=== PATIENT | male | born 1970 | race Caucasian/White ===

== ENCOUNTER 2016-12-02 12:42 | Inpatient (IN) | payer OTHER ==
[2016-12-02 16:24] VITALS: BMI 23.3
--- NOTE | 2016-12-02 17:21 | HP ---
CIWA Score - CIWA Score Nausea/Vomitin-Mild Nausea/No Vomiting Muscle Tremors: 3 Anxiety: 4-Mod. Anxious/Guarded Agitation: 2 Paroxysmal Sweats: 3 Orientation: 0-Oriented Tacttile Disturbances: 1-Very Mild Itch/Numbness Auditory Disturbances: 0-None Visual Disturbances: 0-None Headache: 0-None Present CIWA-Ar Total Score: 14 Admission ROS BHS - HPI Chief Complaint: Alcohol withdrawal symptoms Allergies/Adverse Reactions: Allergies Allergy/AdvReac Type Severity Reaction Status Date / Time No Known Allergies Allergy Verified 12/02/16 17:08 History of Present Illness: 46 years old AA male with a hx of alcohol dependence is admitted for detox. Patient has been in previous detox and graduated from [facility] program in 2012. Patient reports 4 years of sobriety until he lost custody of his 7 years old son. Patient states " I have opioid withdrawal symptoms and cravings at this time". Exam Limitations: Physical Impairment (ambulates with unsteady gait due to left foot cellulitis) - Ebola screening Have you traveled outside of the country in the last 21 days: No Have you had contact with anyone from an Ebola affected area: No Have you been sick,other than usual withdrawal symptoms: No Do you have a fever: No - Review of Systems Constitutional: Loss of Appetite, Malaise, Changes in sleep, Weakness, Unexplained wgt Loss EENT: reports: Blurred Vision (Lost prescription glasses), Other (Has no teeth and reports loss of dentures) Respiratory: reports: SOB with Exertion, Productive cough Cardiac: reports: Chest Tightness (long hx of smoking) GI: reports: Nausea, Poor Appetite, Poor Fluid Intake : reports: No Symptoms Reported Musculoskeletal: reports: Back Pain, Joint Pain, Muscle Pain, Muscle Weakness, Joint Stiffness Integumentary: reports: Flushing Neuro: reports: Tingling, Tremors Endocrine: reports: Flushing, Unexplained Weight Loss (poor appetite and nutrition) Hematology: reports: No Symptoms Reported Psychiatric: reports: Orientated x3, Anxious Other Systems: Reviewed and Negative Patient History - Patient Medical History Hx Anemia: No Hx Asthma: No Hx Chronic Obstructive Pulmonary Disease (COPD): No Hx Cancer: No Hx Cardiac Disorders: No Hx Congestive Heart Failure: No Hx Hypertension: No Hx Hypercholesterolemia: No HX Cerebrovascular Accident: No Hx Seizures: No (denies) Hx Diabetes: No Hx Gastrointestinal Disorders: No Hx Liver Disease: No Hx Genitourinary Disorders: No Hx Sexually Transmitted Disorders: No Hx Renal Disease (ESRD): No Hx Thyroid Disease: No Hx Human Immunodeficiency Virus (HIV): No (Negative May 2016) Hx Hepatitis C: No Hx Depression: No Hx Suicide Attempt: No (Reports no suicidal ideation at this time) Hx Bipolar Disorder: No Hx Schizophrenia: No - Patient Surgical History Past Surgical History: Yes Hx Neurologic Surgery: No Hx Cataract Extraction: No Hx Cardiac Surgery: No Hx Lung Surgery: No Hx Breast Surgery: No Hx Breast Biopsy: No Hx Abdominal Surgery: No Hx Appendectomy: No Hx Cholecystectomy: No Hx Genitourinary Surgery: No Hx Section: No Hx Orthopedic Surgery: Yes (Left thigh 1981) Hx Hysterectomy: No Anesthesia Reaction: No - PPD History Previous Implant?: Yes ([employer]) Documented Results: Negative w/o proof PPD to be Administered?: Yes - Reproductive History Patient is a Female of Child Bearing Age (11 -55 yrs old): No (MALE) - Smoking Cessation Smoking history: Current every day smoker Have you smoked in the past 12 months: Yes Aproximately how many cigarettes per day: 5 Hx Chewing Tobacco Use: No Initiated information on smoking cessation: Yes 'Breaking Loose' booklet given: 12/02/16 - Substance & Tx. History Hx Alcohol Use: Yes (Vodka) Hx Substance Use: Yes (Cocaine, Heroin, Marijuana, Klonopin) Substance Use Type: Alcohol Hx Substance Use Treatment: Yes ([facility]) - Substances Abused Benzodiazepine (Klonopin) Route: Oral Frequency: Daily Amount used: 4 Age of first use: 45 Date of Last Use: 11/30/16 Cocaine Route: Smoking Frequency: Daily Amount used: $200-$300 daily Age of first use: 30 Date of Last Use: 12/01/16 Marijuana/Hashish Route: Smoking Frequency: Daily Amount used: $40 daily Age of first use: 11 Date of Last Use: 12/01/16 Family Disease History - Family Disease History Family Disease History: CA: Mother (Breast/Pancreatic Ca, ) Admission Physical Exam BHS - Vital Signs Vital Signs: Vital Signs - 24 hr 12/02/16 16:23 Temperature 98.1 F Pulse Rate 55 L Respiratory 16 Rate Blood Pressure 129/72 - Physical General Appearance: Yes: Moderate Distress, Thin, Irritable, Sweating, Anxious HEENTM: Yes: EOMI, Normal Voice, Other (No teeth) Respiratory: Yes: Lungs Clear, Normal Breath Sounds, No Respiratory Distress Neck: Yes: Supple Breast: Yes: Breast Exam Deferred Cardiology: Yes: Regular Rhythm, Regular Rate, S1, S2 Abdominal: Yes: Normal Bowel Sounds, Soft Genitourinary: Yes: Within Normal Limits Back: Yes: Normal Inspection Musculoskeletal: Yes: Joint Stiffness, Muscle Pain, Muscle weakness, Other ( ambulates with unsteady gait) Extremities: Yes: Tremors Neurological: Yes: Fully Oriented, Alert, Normal Response Integumentary: Yes: Dry, Pitting Edema (Left lower extremities), Other (Left foot swelling, redness and cellulitis to left 4th toe) Lymphatic: Yes: Within Normal Limits - Diagnostic (1) Alcohol dependence with uncomplicated withdrawal Current Visit: Yes Status: Acute (2) Opioid dependence with withdrawal Current Visit: Yes Status: Acute (3) Cannabis dependence, uncomplicated Current Visit: Yes Status: Acute (4) Sedative, hypnotic or anxiolytic dependence with withdrawal, uncomplicated Current Visit: Yes Status: Acute (5) Cellulitis and abscess of foot Current Visit: Yes Status: Acute Cleared for Admission [facility] - Detox or Rehab [facility] Level of Care: Medically Managed Detox Regimen/Protocol: Librium [facility] Breath Alcohol Content Breath Alcohol Content: 0 Urine Drug Screen - Results Drug Screen Negative: No Urine Drug Screen Results: THC-Marijuana, SUMEET-Cocaine
[2016-12-02] MEDS ORDERED: NICOTINE POLACRILEX 2 MG GUM BC PRN (17:54)
[2016-12-02] MEDS ORDERED: LOPERAMIDE HCL 2 MG CAPSULE PO PRN (17:54)
[2016-12-02] MEDS ORDERED: ACETAMINOPHEN 325 MG TABLET (FP) PO PRN (17:54)
[2016-12-02] MEDS ORDERED: IBUPROFEN 400 MG TABLET (FP) PO PRN (17:54)
[2016-12-02] MEDS ORDERED: P-EPHED 60MG/TRIPROLIDI 2.5MG TABLET PO PRN (17:54)
[2016-12-02] MEDS ORDERED: diphenhydrAMINE HCL 50 MG CAPSULE PO PRN (17:54)
[2016-12-02] MEDS ORDERED: MAGNESIUM CITRATE 300 ML BOTTLE PO PRN (17:54)
[2016-12-02] MEDS ORDERED: hydrOXYzine PAMOATE 50 MG CAPSULE (FP) PO PRN (17:54)
[2016-12-02] MEDS ORDERED: guaiFENesin/D-METHORPHAN HB 10 ML UNIT-DOSE CUPS PO PRN (17:54)
[2016-12-02] MEDS ORDERED: MAGNESIUM HYDROX 2400MG/30ML ORAL SUSPENSION 30 ML CUP PO PRN (17:54)
[2016-12-02] MEDS ORDERED: chlordiazePOXIDE HCL 25 MG CAPSULE PO PRN (17:54)
[2016-12-02] MEDS ORDERED: MAG HYDROX/AL HYDROX/SIMETH 30 ML UNIT-DOSE CUP PO PRN (17:54)
[2016-12-02] MEDS ORDERED: MENTHOL/PHENOL 1 EACH UD MM PRN (17:54)
[2016-12-02] MEDS: THIAMINE HCL 100 MG TABLET (FP) PO SCH (22:16)
[2016-12-02] MEDS: chlordiazePOXIDE HCL 25 MG CAPSULE PO SCH (22:16)
[2016-12-02 22:54] LABS: URINE APPEARANCE CLEAR; URINE BILIRUBIN NEGATIVE (NEGATIVE); URINE BLOOD NEGATIVE (NEGATIVE); URINE COLOR YELLOW; URINE GLUCOSE (UA) NEGATIVE (NEGATIVE); URINE KETONE NEGATIVE (NEGATIVE); URINE NITRITE NEGATIVE (NEGATIVE); URINE PROTEIN NEGATIVE (NEGATIVE); URINE UROBILINOGEN NEGATIVE mg/dL (0.2-1.0)
[2016-12-03] MEDS: chlordiazePOXIDE HCL 25 MG CAPSULE PO SCH ×4 (05:27→22:14)
[2016-12-03] MEDS: AMOX TR/POT CLAV 875MG/125MG TABLETS (FP) PO SCH ×2 (07:53→17:34)
[2016-12-03 09:06] LABS: URINE LEUK ESTERASE Negative (NEGATIVE)
[2016-12-03 10:03] LABS: MCH 31.8 pg (25.7-33.7); MEAN CELL VOLUME 93.7 fl (80-96); MEAN PLT VOLUME 8.3 fl (7.5-11.1); PLATELET COUNT 204 K/MM3 (134-434); RDW 12.7 % (11.9-15.9); WHITE BLOOD COUNT 6.9 K/mm3 (4.0-10.0)
[2016-12-03 10:31] LABS: ALBUMIN 2.8 g/dl (3.4-5.0); ALK PHOS 64 U/L (45-117); ANION GAP 8 (8-16); BILIRUBIN,TOTAL 0.5 mg/dL (0.2-1.0); CALCIUM 7.8 mg/dL (8.5-10.1); CO2 26 mmol/L (21-32); CREATININE 1.1 mg/dL (0.7-1.3); GLUCOSE,RANDOM 98 mg/dL (74-106); SGOT/AST 11 U/L (15-37); SGPT/ALT 21 U/L (12-78); TOT PROT 5.7 g/dl (6.4-8.2)
[2016-12-03] MEDS: PRENATAL VITAMINS W/ FOLIC ACID TABLET (FP) PO SCH (10:31)
[2016-12-03] MEDS: NICOTINE 14 MG/24 HOURS TOPICAL PATCH TD SCH (10:31)
--- NOTE | 2016-12-03 13:25 | EKG ---
Test Reason : Blood Pressure : / mmHG Vent. Rate : 060 BPM Atrial Rate : 060 BPM P-R Int : 142 ms QRS Dur : 078 ms QT Int : 422 ms P-R-T Axes : 079 077 071 degrees QTc Int : 422 ms NORMAL SINUS RHYTHM NORMAL ECG NO PREVIOUS ECGS AVAILABLE Confirmed by HUGO BANDA, ANKITA ([id number]) on 12/03/2016 1:24:58 PM Referred By: Confirmed By:ANKITA ARIAS MD
--- NOTE | 2016-12-03 13:45 | PN ---
[facility] CIWA - CIWA Score Nausea/Vomitin-No Nausea/No Vomiting Muscle Tremors: 3 Anxiety: 4-Mod. Anxious/Guarded Agitation: 2 Paroxysmal Sweats: 3 Orientation: 2-Disoriented Date<2 days Tacttile Disturbances: 3-Moderate Itch/Numb/Burn Auditory Disturbances: 0-None Visual Disturbances: 0-None Headache: 4-Moderately Severe CIWA-Ar Total Score: 21 BHS Progress Note (SOAP) Subjective: Body aches, Sweating, H/A, Tremors. Objective: PT. A & O X 2 (DISORIENTED ABOUT DAY / DATE). NO ACUTE DISTRESS. 12/03/16 13:41 Vital Signs Temperature 97.6 F 12/03/16 13:30 Pulse Rate 69 12/03/16 13:30 Respiratory Rate 18 12/03/16 13:30 Blood Pressure 121/71 12/03/16 13:30 O2 Sat by Pulse Oximetry (%) Laboratory Tests 12/02/16 12/03/16 12/03/16 22:45 07:00 07:00 WBC 6.9 RBC 4.10 Hgb 13.1 Hct 38.5 MCV 93.7 MCH 31.8 MCHC 34.0 RDW 12.7 Plt Count 204 MPV 8.3 Sodium 142 Potassium 3.8 Chloride 108 H Carbon Dioxide 26 Anion Gap 8 BUN 16 Creatinine 1.1 Creat Clearance w eGFR > 60 Random Glucose 98 Calcium 7.8 L Total Bilirubin 0.5 AST 11 L ALT 21 Alkaline Phosphatase 64 Total Protein 5.7 L Albumin 2.8 L Urine Color Yellow Urine Appearance Clear Urine pH 5.0 Ur Specific [place] 1.020 Urine Protein Negative Urine Glucose (UA) Negative Urine Ketones Negative Urine Blood Negative Urine Nitrite Negative Urine Bilirubin Negative Urine Urobilinogen Negative Ur Leukocyte Esterase Negative RPR Titer 12/03/16 07:00 WBC RBC Hgb Hct MCV MCH MCHC RDW Plt Count MPV Sodium Potassium Chloride Carbon Dioxide Anion Gap BUN Creatinine Creat Clearance w eGFR Random Glucose Calcium Total Bilirubin AST ALT Alkaline Phosphatase Total Protein Albumin Urine Color Urine Appearance Urine pH Ur Specific [place] Urine Protein Urine Glucose (UA) Urine Ketones Urine Blood Urine Nitrite Urine Bilirubin Urine Urobilinogen Ur Leukocyte Esterase RPR Titer Nonreactive LABS NOTED. SWELLING NOTED IN LOWER ASPECT OF LEFT LEG. PATIENT REPORTS THAT HE COMPLETED 15 -DAY COURSE OF ANTIBIOTIC (HE WAS UNABLE TO RECALL NAME) APPROX. 3 DAYS PRIOR TO ADMISSION TO DETOX AND THAT, IN HIS, VIEW, SWELLING IN LEG HAS BEEN DIMINISHING OVER THE LAST FEW DAYS. WILL CONTINUE TO MONITOR. 12/03/16 13:42 12/03/16 13:44 Assessment: 12/03/16 13:42 WITHDRAWAL SYMPTOMS. Plan: CONTINUE DETOX.
[2016-12-03] MEDS: THIAMINE HCL 100 MG TABLET (FP) PO SCH (22:14)
[2016-12-04] MEDS: chlordiazePOXIDE HCL 25 MG CAPSULE PO SCH ×3 (05:25→17:18)
[2016-12-04] MEDS: AMOX TR/POT CLAV 875MG/125MG TABLETS (FP) PO SCH ×2 (07:36→17:17)
[2016-12-04] MEDS: PRENATAL VITAMINS W/ FOLIC ACID TABLET (FP) PO SCH (10:12)
[2016-12-04] MEDS: NICOTINE 14 MG/24 HOURS TOPICAL PATCH TD SCH (10:12)
[2016-12-04] MEDS: NAPROXEN 375 MG TABLET (FP) PO SCH ×2 (11:36→22:19)
[2016-12-04] MEDS: BACITRACIN 0.9 GM PACKET TP SCH ×2 (11:36→22:20)
--- NOTE | 2016-12-04 12:51 | PN ---
[facility] CIWA - CIWA Score Nausea/Vomitin-No Nausea/No Vomiting Muscle Tremors: 3 Anxiety: 4-Mod. Anxious/Guarded Agitation: 3 Paroxysmal Sweats: 3 Orientation: 0-Oriented Tacttile Disturbances: 3-Moderate Itch/Numb/Burn Auditory Disturbances: 0-None Visual Disturbances: 0-None Headache: 0-None Present CIWA-Ar Total Score: 16 BHS Progress Note (SOAP) Subjective: Sweating, Tremors, Body Aches. Objective: PT. A & O X 3, OBSERVED AMBULATING ON UNIT. NO ACUTE DISTRESS. 12/04/16 12:47 Vital Signs Temperature 96.5 F L 12/04/16 09:06 Pulse Rate 65 12/04/16 09:06 Respiratory Rate 20 12/04/16 09:06 Blood Pressure 137/69 12/04/16 09:06 O2 Sat by Pulse Oximetry (%) Laboratory Tests 12/02/16 12/03/16 12/03/16 22:45 07:00 07:00 WBC 6.9 RBC 4.10 Hgb 13.1 Hct 38.5 MCV 93.7 MCH 31.8 MCHC 34.0 RDW 12.7 Plt Count 204 MPV 8.3 Sodium 142 Potassium 3.8 Chloride 108 H Carbon Dioxide 26 Anion Gap 8 BUN 16 Creatinine 1.1 Creat Clearance w eGFR > 60 Random Glucose 98 Calcium 7.8 L Total Bilirubin 0.5 AST 11 L ALT 21 Alkaline Phosphatase 64 Total Protein 5.7 L Albumin 2.8 L Urine Color Yellow Urine Appearance Clear Urine pH 5.0 Ur Specific [place] 1.020 Urine Protein Negative Urine Glucose (UA) Negative Urine Ketones Negative Urine Blood Negative Urine Nitrite Negative Urine Bilirubin Negative Urine Urobilinogen Negative Ur Leukocyte Esterase Negative RPR Titer 12/03/16 07:00 WBC RBC Hgb Hct MCV MCH MCHC RDW Plt Count MPV Sodium Potassium Chloride Carbon Dioxide Anion Gap BUN Creatinine Creat Clearance w eGFR Random Glucose Calcium Total Bilirubin AST ALT Alkaline Phosphatase Total Protein Albumin Urine Color Urine Appearance Urine pH Ur Specific [place] Urine Protein Urine Glucose (UA) Urine Ketones Urine Blood Urine Nitrite Urine Bilirubin Urine Urobilinogen Ur Leukocyte Esterase RPR Titer Nonreactive LABS NOTED. SWELLING OF LEFT LOWER LEG APPEARS TO BE SLIGHTLY LESS THAN YESTERDAY. WILL CONTINUE TO MONITOR. 12/04/16 12:49 Assessment: 12/04/16 12:47 WITHDRAWAL SYMPTOMS. Plan: CONTINUE DETOX. CONTINUE AUGMENTIN FOR LEFT LEG CELLULITIS. BACITRACIN TO BE APPLIED TO WOUND ON DORSUM OF LEFT FOOT. NAPROXEN, 375 MGP PO BID FOR LEFT LEG PAIN.
[2016-12-04] MEDS: THIAMINE HCL 100 MG TABLET (FP) PO SCH (22:20)
[2016-12-04] MEDS: chlordiazePOXIDE 5 MG CAPSULE PO SCH (22:20)
[2016-12-05] MEDS: chlordiazePOXIDE 5 MG CAPSULE PO SCH ×2 (05:05→10:13)
[2016-12-05] MEDS: AMOX TR/POT CLAV 875MG/125MG TABLETS (FP) PO SCH (07:19)
[2016-12-05 10:04] VITALS: BP 137/81; PULSE 66; TEMP 98.4
[2016-12-05] MEDS: PRENATAL VITAMINS W/ FOLIC ACID TABLET (FP) PO SCH (10:11)
[2016-12-05] MEDS: NAPROXEN 375 MG TABLET (FP) PO SCH (10:11)
[2016-12-05] MEDS: BACITRACIN 0.9 GM PACKET TP SCH (10:13)
[2016-12-05] MEDS: NICOTINE 14 MG/24 HOURS TOPICAL PATCH TD SCH (10:13)
--- NOTE | 2016-12-05 16:45 | DS ---
[facility] Detox Discharge Summary Admission Date: 12/02/16 Discharge Date: 12/05/16 - History Present History: Alcohol Dependence, Cannabis Dependence, Opioid Dependence, Sedative Dependence Additional Comments: PATIENT REPORTS THAT HE GENERALLY FEELS WELL AND THAT CURRENT DETOX SYMPTOMS ARE MINIMAL. PATIENT GOING HOME AND WILL ATTEND OUTPATIENT DAY PROGRAM FOR AFTERCARE. PRESCRIPTION FOR CONTINUATION OF ANTIBIOTIC (AUGMENTIN) THAT PATIENT WAS RECEIVING WHILE ADMITTED FOR DETOX (FOR CELLULITIS OF LEFT LEG AND FOOT) GIVEN FOR PATIENT TO TAKE TO COMPLETE (7 DAYS) AFTER DETOX. PATIENT ADVISED TO FOLLOW-UP WITH RETAIL ADVISOR DR. MARS ([facility]) FOR MEDICAL EVALUATION AND FOR FOLLOW-UP EVALUATION OF CELLULITIS SOON POSSIBLE AFTER DISCHARGE FROM DETOX. PATIENT VERBALIZED UNDERSTANDING OF RECOMMENDATION. PATIENT WAS DISCHARGED FROM DETOX UNIT IN STABLE MEDICAL CONDITION. Pertinent Past History: Cellulitis of Left Leg and Foot. - Physical Exam Results Vital Signs: Vital Signs Temperature 98.4 F 12/05/16 10:00 Pulse Rate 66 12/05/16 10:00 Respiratory Rate 18 12/05/16 10:00 Blood Pressure 137/81 12/05/16 10:00 O2 Sat by Pulse Oximetry (%) Pertinent Admission Physical Exam Findings: WITHDRAWAL SYMPTOMS. Laboratory Tests 12/02/16 12/03/16 12/03/16 22:45 07:00 07:00 WBC 6.9 RBC 4.10 Hgb 13.1 Hct 38.5 MCV 93.7 MCH 31.8 MCHC 34.0 RDW 12.7 Plt Count 204 MPV 8.3 Sodium 142 Potassium 3.8 Chloride 108 H Carbon Dioxide 26 Anion Gap 8 BUN 16 Creatinine 1.1 Creat Clearance w eGFR > 60 Random Glucose 98 Calcium 7.8 L Total Bilirubin 0.5 AST 11 L ALT 21 Alkaline Phosphatase 64 Total Protein 5.7 L Albumin 2.8 L Urine Color Yellow Urine Appearance Clear Urine pH 5.0 Ur Specific [place] 1.020 Urine Protein Negative Urine Glucose (UA) Negative Urine Ketones Negative Urine Blood Negative Urine Nitrite Negative Urine Bilirubin Negative Urine Urobilinogen Negative Ur Leukocyte Esterase Negative RPR Titer 12/03/16 07:00 WBC RBC Hgb Hct MCV MCH MCHC RDW Plt Count MPV Sodium Potassium Chloride Carbon Dioxide Anion Gap BUN Creatinine Creat Clearance w eGFR Random Glucose Calcium Total Bilirubin AST ALT Alkaline Phosphatase Total Protein Albumin Urine Color Urine Appearance Urine pH Ur Specific [place] Urine Protein Urine Glucose (UA) Urine Ketones Urine Blood Urine Nitrite Urine Bilirubin Urine Urobilinogen Ur Leukocyte Esterase RPR Titer Nonreactive LABS NOTED. - Treatment Hospital Course: Detox Protocol Followed, Detoxed Safely, Responded well, Discharged Condition Good Patient has Accepted a Rehab Referral to: NO. PT GOING HOME; ADVISED TO CONSIDER LOCAL 12-STEP/NA/AA SUPPORT GROUPS. - Medication Discharge Medications: Ambulatory Orders Amox-Tr/K Cl [Augmentin - 875Mg Tablet] 1 tab PO BID@0800,1730 #14 tablet Bacitracin - [Bacitracin Topical Ointment -] 1 applic TP BID #1 tube 12/05/16 - Diagnosis (1) Alcohol dependence with uncomplicated withdrawal Status: Acute (2) Cannabis dependence, uncomplicated Status: Acute (3) Cellulitis and abscess of foot Status: Acute (4) Opioid dependence with withdrawal Status: Acute (5) Sedative, hypnotic or anxiolytic dependence with withdrawal, uncomplicated Status: Acute - AMA Did Patient Leave Against Medical Advice: No
[2016-12-05] MEDS ORDERED: chlordiazePOXIDE HCL 10 MG CAPSULE PO SCH (23:00)
== END 2016-12-05 10:27 | disposition home or self-care (01) | DRG 773 ==
LOC: YASAS 12:42 → Y3N 19:22
PROVIDERS: ADMIT Internal Medicine; ATTEND Internal Medicine
PROC: HZ2ZZZZ Detoxification Services for Substance Abuse Treatment (ICD-10-PCS; principal; 2016-12-02)
DX: F11.23 Opioid dependence with withdrawal (principal); F13.230 Sedative, hypnotic or anxiolytic dependence with withdrawal, uncomplicated; F10.230 Alcohol dependence with withdrawal, uncomplicated; F12.20 Cannabis dependence, uncomplicated; L03.116 Cellulitis of left lower limb
CPT/HCPCS: 36415; 80053; 81003; 85027; 86593; 93005; 93010

== ENCOUNTER 2020-01-16 11:34 | Emergency (ER) | payer OTHER ==
[2020-01-16 12:00] VITALS: BMI 22.3
[2020-01-16 12:40] LABS: BASO % 0.5 % (0-2.0); HEMATOCRIT 41.3 % (35.4-49); HEMOGLOBIN 13.5 GM/dL (11.7-16.9); LYMPH % 18.4 % (8-40); MCH 31.3 pg (25.7-33.7); MCHC 32.7 g/dl (32.0-35.9); MEAN CELL VOLUME 95.6 fl (80-96); MEAN PLT VOLUME 6.8 fl (7.5-11.1); MONO % 4.4 % (3.8-10.2); NEUT % 74.7 % (42.8-82.8); PLATELET COUNT 474 K/MM3 (134-434); RBC 4.32 M/mm3 (4.00-5.60); RDW 13.6 % (11.9-15.9); WHITE BLOOD COUNT 7.3 K/mm3 (4.0-10.0)
[2020-01-16 12:48] LABS: POTASSIUM 4.9 mmol/L (3.5-5.1)
[2020-01-16 12:50] LABS: ALBUMIN 3.1 g/dl (3.4-5.0); BLOOD UREA NITROGEN 21.1 mg/dL (7-18); CALCIUM 9.1 mg/dL (8.5-10.1)
[2020-01-16 12:54] LABS: CREATININE 1.2 mg/dL (0.55-1.3)
[2020-01-16 12:55] LABS: BILIRUBIN,TOTAL 0.2 mg/dL (0.2-1); TOT PROT 7.1 g/dl (6.4-8.2)
[2020-01-16 14:19] VITALS: BP 134/73; PULSE 65; TEMP 98.1
== END 2020-01-16 14:40 | disposition home or self-care (01) ==
LOC: JER 11:34
DX: T40.1X1A Poisoning by heroin, accidental (unintentional), initial encounter (principal); F11.10 Opioid abuse, uncomplicated
CPT/HCPCS: 36415; 80053; 85025; 93970-TC; 99284-25

== ENCOUNTER 2020-01-16 15:13 | Inpatient (IN) | payer OTHER ==
[~2020-01-16 15:13] MED LIST: NALOXONE (NARCAN) HCL 4 MG/0.1 ML SPRAY NS ONE
[2020-01-16] MEDS ORDERED: NICOTINE POLACRILEX 2 MG GUM BUC PRN (16:48)
[2020-01-16] MEDS ORDERED: MAGNESIUM HYDROX 2400MG/30ML ORAL SUSPENSION 30 ML CUP PO PRN (16:48)
[2020-01-16] MEDS ORDERED: METHADONE HCL 10 MG TABLET (FOR DETOX USE ONLY) PO ONE (16:48)
[2020-01-16] MEDS ORDERED: MAG HYDROX/AL HYDROX/SIMETH 30 ML UNIT-DOSE CUP PO PRN (16:48)
[2020-01-16] MEDS ORDERED: BISMUTH SUBSALICYLATE 524 MG/30 ML UD PO PRN (16:48)
[2020-01-16] MEDS ORDERED: MAGNESIUM CITRATE 300 ML BOTTLE PO PRN (16:48)
[2020-01-16] MEDS ORDERED: MENTHOL/PHENOL 1 EACH UD MM PRN (16:48)
[2020-01-16] MEDS ORDERED: IBUPROFEN 400 MG TABLET (FP) PO PRN (16:48)
[2020-01-16] MEDS ORDERED: chlordiazePOXIDE HCL 25 MG CAPSULE PO PRN (16:48)
[2020-01-16] MEDS ORDERED: ACETAMINOPHEN 325 MG TABLET (FP) PO PRN ×2 (16:48)
[2020-01-16] MEDS ORDERED: NALOXONE HCL 0.4 MG/ML VIAL IM PRN (16:48)
[2020-01-16] MEDS ORDERED: cloNIDine HCL 0.1 MG TABLET PO PRN (16:48)
[2020-01-16] MEDS: chlordiazePOXIDE HCL 25 MG CAPSULE PO SCH ×2 (18:51→22:17)
[2020-01-16] MEDS: THIAMINE HCL 100 MG TABLET (FP) PO SCH (22:17)
[2020-01-16] MEDS: MELATONIN 5 MG TABLETS PO SCH (22:17)
[2020-01-17] MEDS: chlordiazePOXIDE HCL 25 MG CAPSULE PO SCH ×4 (05:55→22:23)
[2020-01-17] MEDS ORDERED: METHADONE HCL 10 MG TABLET (FOR DETOX USE ONLY) ONE (09:09)
[2020-01-17] MEDS ORDERED: METHADONE HCL 5 MG TABLET (FOR DETOX USE ONLY) ONE (09:10)
[2020-01-17] MEDS ORDERED: METHADONE (DETOX) 20 MG, METHADONE (DETOX) 5 MG PO ONE (10:00)
[2020-01-17] MEDS: PRENATAL VITAMINS W/ FOLIC ACID TABLET (FP) PO SCH (10:28)
[2020-01-17] MEDS: NICOTINE 7 MG/24 HOURS TOPICAL PATCH TD SCH (10:29)
[2020-01-17] MEDS: THIAMINE HCL 100 MG TABLET (FP) PO SCH (22:23)
[2020-01-17] MEDS: MELATONIN 5 MG TABLETS PO SCH (22:23)
[2020-01-18] MEDS: chlordiazePOXIDE HCL 25 MG CAPSULE PO SCH ×4 (06:06→22:42)
[2020-01-18] MEDS: METHOCARBAMOL 500 MG TABLET PO PRN (06:07)
[2020-01-18] MEDS ORDERED: METHADONE HCL 10 MG TABLET (FOR DETOX USE ONLY) PO ONE (10:00)
[2020-01-18] MEDS: PRENATAL VITAMINS W/ FOLIC ACID TABLET (FP) PO SCH (10:03)
[2020-01-18] MEDS: NICOTINE 7 MG/24 HOURS TOPICAL PATCH TD SCH (10:03)
[2020-01-18] MEDS: THIAMINE HCL 100 MG TABLET (FP) PO SCH (22:42)
[2020-01-18] MEDS: MELATONIN 5 MG TABLETS PO SCH (22:42)
[2020-01-19] MEDS ORDERED: chlordiazePOXIDE HCL 10 MG CAPSULE PO PRN
[2020-01-19] MEDS: chlordiazePOXIDE HCL 10 MG CAPSULE PO SCH ×4 (05:55→22:38)
[2020-01-19] MEDS ORDERED: METHADONE HCL 5 MG TABLET (FOR DETOX USE ONLY) ONE (09:05)
[2020-01-19] MEDS ORDERED: METHADONE HCL 10 MG TABLET (FOR DETOX USE ONLY) ONE (09:05)
[2020-01-19] MEDS ORDERED: METHADONE (DETOX) 10 MG, METHADONE (DETOX) 5 MG PO ONE (10:00)
[2020-01-19] MEDS: NICOTINE 7 MG/24 HOURS TOPICAL PATCH TD SCH (10:33)
[2020-01-19] MEDS: PRENATAL VITAMINS W/ FOLIC ACID TABLET (FP) PO SCH (10:33)
[2020-01-19] MEDS: METHOCARBAMOL 500 MG TABLET PO PRN (10:35)
[2020-01-19] MEDS: THIAMINE HCL 100 MG TABLET (FP) PO SCH (22:38)
[2020-01-19] MEDS: MELATONIN 5 MG TABLETS PO SCH (22:38)
[2020-01-20] MEDS: chlordiazePOXIDE HCL 10 MG CAPSULE PO SCH ×2 (06:09→17:38)
[2020-01-20] MEDS ORDERED: METHADONE HCL 10 MG TABLET (FOR DETOX USE ONLY) PO ONE (10:00)
[2020-01-20] MEDS: NICOTINE 7 MG/24 HOURS TOPICAL PATCH TD SCH (10:38)
[2020-01-20] MEDS: PRENATAL VITAMINS W/ FOLIC ACID TABLET (FP) PO SCH (10:38)
[2020-01-20] MEDS: MELATONIN 5 MG TABLETS PO SCH (22:24)
[2020-01-20] MEDS: THIAMINE HCL 100 MG TABLET (FP) PO SCH (22:24)
[2020-01-21] MEDS ORDERED: chlordiazePOXIDE HCL 10 MG CAPSULE PO ONE (05:00)
[2020-01-21] MEDS ORDERED: METHADONE HCL 5 MG TABLET (FOR DETOX USE ONLY) PO ONE (06:00)
[2020-01-21 09:01] VITALS: BP 107/60; PULSE 84; TEMP 97.3
[2020-01-21] MEDS: PRENATAL VITAMINS W/ FOLIC ACID TABLET (FP) PO SCH (10:35)
[2020-01-21] MEDS: NICOTINE 7 MG/24 HOURS TOPICAL PATCH TD SCH (10:36)
== END 2020-01-21 11:18 | disposition other institution (70) | DRG 773 ==
LOC: YASAS 15:13 → Y3N 16:07
PROVIDERS: ADMIT Allergy & Immunology; ATTEND Allergy & Immunology
PROC: HZ2ZZZZ Detoxification Services for Substance Abuse Treatment (ICD-10-PCS; principal; 2020-01-16)
DX: F11.23 Opioid dependence with withdrawal (principal); F10.230 Alcohol dependence with withdrawal, uncomplicated; F12.20 Cannabis dependence, uncomplicated; F17.210 Nicotine dependence, cigarettes, uncomplicated; R73.09 Other abnormal glucose; R60.0 Localized edema
CPT/HCPCS: 36415; 82962; 86780; 93005; 93010; C9803; U0003

== ENCOUNTER 2020-01-21 11:24 | Inpatient (IN) | payer OTHER ==
[2020-01-21] MEDS ORDERED: MAG HYDROX/AL HYDROX/SIMETH 30 ML UNIT-DOSE CUP PO PRN (13:30)
[2020-01-21] MEDS ORDERED: MAGNESIUM HYDROX 2400MG/30ML ORAL SUSPENSION 30 ML CUP PO PRN (13:30)
[2020-01-21] MEDS ORDERED: LOPERAMIDE HCL 2 MG CAPSULE PO PRN (13:30)
[2020-01-21] MEDS ORDERED: MAGNESIUM CITRATE 300 ML BOTTLE PO PRN (13:30)
[2020-01-21] MEDS ORDERED: guaiFENesin 200 MG/10 ML 10 ML UNIT-DOSE CUPS PO PRN (13:30)
[2020-01-21] MEDS ORDERED: P-EPHED 60MG/TRIPROLIDI 2.5MG TABLET PO PRN (13:30)
[2020-01-21] MEDS ORDERED: NICOTINE POLACRILEX 2 MG GUM BUC PRN (13:30)
[2020-01-21] MEDS ORDERED: MENTHOL/PHENOL 1 EACH UD MM PRN (13:30)
[2020-01-21] MEDS ORDERED: IBUPROFEN 400 MG TABLET (FP) PO PRN (13:30)
[2020-01-21] MEDS ORDERED: ACETAMINOPHEN 325 MG TABLET (FP) PO PRN (13:30)
[2020-01-21] MEDS: MELATONIN 5 MG TABLETS PO SCH (21:13)
[2020-01-21] MEDS: THIAMINE HCL 100 MG TABLET (FP) PO SCH (21:13)
[2020-01-22] MEDS: NICOTINE 7 MG/24 HOURS TOPICAL PATCH TD SCH (10:17)
[2020-01-22] MEDS: PRENATAL VITAMINS W/ FOLIC ACID TABLET (FP) PO SCH (10:17)
[2020-01-22 13:32] LABS: HIV INTERPRETATION NEGATIVE (NEGATIVE)
[2020-01-22] MEDS: MELATONIN 5 MG TABLETS PO SCH (21:39)
[2020-01-22] MEDS: THIAMINE HCL 100 MG TABLET (FP) PO SCH (21:39)
[2020-01-23] MEDS ORDERED: hydrOXYzine PAMOATE 50 MG CAPSULE (FP) PO ONE (01:07)
[2020-01-23] MEDS ORDERED: HYDROCORTISONE 1% TOPICAL CREAM 30 GM TUBE TP PRN (01:08)
[2020-01-23] MEDS: NICOTINE 7 MG/24 HOURS TOPICAL PATCH TD SCH (10:30)
[2020-01-23] MEDS: PRENATAL VITAMINS W/ FOLIC ACID TABLET (FP) PO SCH (10:30)
[2020-01-23] MEDS: THIAMINE HCL 100 MG TABLET (FP) PO SCH (21:24)
[2020-01-23] MEDS: MELATONIN 5 MG TABLETS PO SCH (21:24)
[2020-01-24] MEDS: PRENATAL VITAMINS W/ FOLIC ACID TABLET (FP) PO SCH (10:36)
[2020-01-24] MEDS: NICOTINE 7 MG/24 HOURS TOPICAL PATCH TD SCH (10:37)
[2020-01-24] MEDS: THIAMINE HCL 100 MG TABLET (FP) PO SCH (21:03)
[2020-01-24] MEDS: MELATONIN 5 MG TABLETS PO SCH (21:03)
[2020-01-25] MEDS: NICOTINE 7 MG/24 HOURS TOPICAL PATCH TD SCH (10:55)
[2020-01-25] MEDS: PRENATAL VITAMINS W/ FOLIC ACID TABLET (FP) PO SCH (10:55)
[2020-01-25] MEDS: MELATONIN 5 MG TABLETS PO SCH (21:22)
[2020-01-25] MEDS: THIAMINE HCL 100 MG TABLET (FP) PO SCH (21:22)
[2020-01-26] MEDS: PRENATAL VITAMINS W/ FOLIC ACID TABLET (FP) PO SCH (10:13)
[2020-01-26] MEDS: NICOTINE 7 MG/24 HOURS TOPICAL PATCH TD SCH (10:14)
[2020-01-26] MEDS: MELATONIN 5 MG TABLETS PO SCH (21:10)
[2020-01-26] MEDS: THIAMINE HCL 100 MG TABLET (FP) PO SCH (21:11)
[2020-01-27] MEDS: NICOTINE 7 MG/24 HOURS TOPICAL PATCH TD SCH (10:22)
[2020-01-27] MEDS: PRENATAL VITAMINS W/ FOLIC ACID TABLET (FP) PO SCH (10:22)
[2020-01-27] MEDS: MELATONIN 5 MG TABLETS PO SCH (21:34)
[2020-01-27] MEDS: THIAMINE HCL 100 MG TABLET (FP) PO SCH (21:34)
[2020-01-28] MEDS: NICOTINE 7 MG/24 HOURS TOPICAL PATCH TD SCH (10:15)
[2020-01-28] MEDS: PRENATAL VITAMINS W/ FOLIC ACID TABLET (FP) PO SCH (10:15)
[2020-01-28 12:03] LABS: BASO % 0.6 % (0-2.0); EOS % 4.1 % (0-4.5); HEMATOCRIT 37.1 % (35.4-49); HEMOGLOBIN 12.2 GM/dL (11.7-16.9); LYMPH % 33.1 % (8-40); MCHC 32.8 g/dl (32.0-35.9); MEAN CELL VOLUME 94.4 fl (80-96); MEAN PLT VOLUME 8.1 fl (7.5-11.1); MONO % 11.2 % (3.8-10.2); PLATELET COUNT 243 K/MM3 (134-434); RBC 3.94 M/mm3 (4.00-5.60); RDW 13.8 % (11.9-15.9); WHITE BLOOD COUNT 5.8 K/mm3 (4.0-10.0)
[2020-01-28] MEDS: MELATONIN 5 MG TABLETS PO SCH (21:16)
[2020-01-28] MEDS: THIAMINE HCL 100 MG TABLET (FP) PO SCH (21:16)
[2020-01-29] MEDS: NICOTINE 7 MG/24 HOURS TOPICAL PATCH TD SCH (10:12)
[2020-01-29] MEDS: PRENATAL VITAMINS W/ FOLIC ACID TABLET (FP) PO SCH (10:12)
[2020-01-29] MEDS: MELATONIN 5 MG TABLETS PO SCH (21:43)
[2020-01-29] MEDS: THIAMINE HCL 100 MG TABLET (FP) PO SCH (21:43)
[2020-01-30] MEDS: NICOTINE 7 MG/24 HOURS TOPICAL PATCH TD SCH (09:08)
[2020-01-30] MEDS: PRENATAL VITAMINS W/ FOLIC ACID TABLET (FP) PO SCH (09:08)
[2020-01-30] MEDS: MELATONIN 5 MG TABLETS PO SCH (21:06)
[2020-01-30] MEDS: THIAMINE HCL 100 MG TABLET (FP) PO SCH (21:06)
[2020-01-31] MEDS: NICOTINE 7 MG/24 HOURS TOPICAL PATCH TD SCH (09:48)
[2020-01-31] MEDS: PRENATAL VITAMINS W/ FOLIC ACID TABLET (FP) PO SCH (09:48)
[2020-01-31] MEDS: THIAMINE HCL 100 MG TABLET (FP) PO SCH (21:23)
[2020-01-31] MEDS: MELATONIN 5 MG TABLETS PO SCH (21:23)
[2020-02-01] MEDS: NICOTINE 7 MG/24 HOURS TOPICAL PATCH TD SCH (10:08)
[2020-02-01] MEDS: PRENATAL VITAMINS W/ FOLIC ACID TABLET (FP) PO SCH (10:49)
[2020-02-01] MEDS: THIAMINE HCL 100 MG TABLET (FP) PO SCH (21:12)
[2020-02-01] MEDS: MELATONIN 5 MG TABLETS PO SCH (21:12)
[2020-02-02] MEDS: PRENATAL VITAMINS W/ FOLIC ACID TABLET (FP) PO SCH (09:57)
[2020-02-02] MEDS: NICOTINE 7 MG/24 HOURS TOPICAL PATCH TD SCH (09:57)
[2020-02-02] MEDS: THIAMINE HCL 100 MG TABLET (FP) PO SCH (21:39)
[2020-02-02] MEDS: MELATONIN 5 MG TABLETS PO SCH (21:39)
[2020-02-03] MEDS: PRENATAL VITAMINS W/ FOLIC ACID TABLET (FP) PO SCH (10:34)
[2020-02-03] MEDS: NICOTINE 7 MG/24 HOURS TOPICAL PATCH TD SCH (10:34)
[2020-02-03] MEDS: MELATONIN 5 MG TABLETS PO SCH (21:31)
[2020-02-03] MEDS: THIAMINE HCL 100 MG TABLET (FP) PO SCH (21:31)
[2020-02-04] MEDS: NICOTINE 7 MG/24 HOURS TOPICAL PATCH TD SCH (10:31)
[2020-02-04] MEDS: PRENATAL VITAMINS W/ FOLIC ACID TABLET (FP) PO SCH (10:31)
[2020-02-04] MEDS: THIAMINE HCL 100 MG TABLET (FP) PO SCH (21:12)
[2020-02-04] MEDS: MELATONIN 5 MG TABLETS PO SCH (21:12)
[2020-02-05] MEDS: NICOTINE 7 MG/24 HOURS TOPICAL PATCH TD SCH (09:39)
[2020-02-05] MEDS: PRENATAL VITAMINS W/ FOLIC ACID TABLET (FP) PO SCH (09:39)
[2020-02-05] MEDS: MELATONIN 5 MG TABLETS PO SCH (21:36)
[2020-02-05] MEDS: THIAMINE HCL 100 MG TABLET (FP) PO SCH (21:36)
[2020-02-06] MEDS: PRENATAL VITAMINS W/ FOLIC ACID TABLET (FP) PO SCH (11:01)
[2020-02-06] MEDS: NICOTINE 7 MG/24 HOURS TOPICAL PATCH TD SCH (11:01)
[2020-02-06] MEDS: THIAMINE HCL 100 MG TABLET (FP) PO SCH (21:10)
[2020-02-06] MEDS: MELATONIN 5 MG TABLETS PO SCH (21:10)
[2020-02-07 06:58] VITALS: TEMP 98.1
[2020-02-07] MEDS: PRENATAL VITAMINS W/ FOLIC ACID TABLET (FP) PO SCH (10:05)
[2020-02-07] MEDS: NICOTINE 7 MG/24 HOURS TOPICAL PATCH TD SCH (10:05)
[2020-02-07] MEDS: MELATONIN 5 MG TABLETS PO SCH (21:36)
[2020-02-07] MEDS: THIAMINE HCL 100 MG TABLET (FP) PO SCH (21:36)
[2020-02-08 07:06] VITALS: BP 127/65; PULSE 64
[2020-02-08] MEDS: NICOTINE 7 MG/24 HOURS TOPICAL PATCH TD SCH (09:02)
[2020-02-08] MEDS: PRENATAL VITAMINS W/ FOLIC ACID TABLET (FP) PO SCH (09:02)
== END 2020-02-08 09:50 | disposition home or self-care (01) | DRG 772 ==
LOC: YASAS 11:24 → Y3W 11:25
PROVIDERS: ADMIT Allergy & Immunology; ATTEND Allergy & Immunology
PROC: HZ42ZZZ Group Counseling for Substance Abuse Treatment, Cognitive-Behavioral (ICD-10-PCS; principal; 2020-01-21)
DX: F11.20 Opioid dependence, uncomplicated (principal); F10.20 Alcohol dependence, uncomplicated; F12.20 Cannabis dependence, uncomplicated; F17.210 Nicotine dependence, cigarettes, uncomplicated; M79.89 Other specified soft tissue disorders; Z59.0 Homelessness
CPT/HCPCS: 36415; 82962; 85025; 87389